=== PATIENT | male | born 1965 | race Caucasian/White ===

== ENCOUNTER 2022-03-24 10:24 | Inpatient (IN) | payer MEDICAID ==
[~2022-03-24] VITALS: Ht 297.2 cm; Wt 72.1 kg
[2022-03-24] MEDS ORDERED: ONDANSETRON HCL 4MG/2ML INJ IV STA (10:31)
[2022-03-24] MEDS ORDERED: SODIUM CHLORIDE 0.9% 1,000 ML IV ONE (10:45)
[2022-03-24] MEDS ORDERED: ONDANSETRON HCL 4MG/2ML INJ IV ONE (12:30)
[2022-03-24] MEDS ORDERED: ONDA4TAB50 PO (12:53)
[2022-03-24 13:19] LABS: BASOPHILS % 0.1 % (0.0-2.0); EOSINOPHILS % 0.1 % (0.0-5.0); HEMATOCRIT. 35.5 % (42.0-52.0); HEMOGLOBIN. 11.6 g/dL (14.0-18.0); LYMPHOCYTES % 15.5 % (20.0-50.0); MEAN CORPUSCULAR HEMOGLOBIN 32.9 pg (28.0-32.0); MEAN CORPUSCULAR VOLUME 100.9 fL (80.0-94.0); MONOCYTES % 8.4 % (2.0-8.0); NEUTROPHILS % 75.9 % (40.0-76.0); PLATELET 158 x1000/uL (130-400); RED BLOOD CELL COUNT 3.51 mill/uL (4.7-6.1); RED CELL DISTRIBUTION WIDTH 14.6 % (11.6-14.6)
[2022-03-24 13:21] LABS: CHLORIDE 110 mEq/L (98-107)
[2022-03-24 13:22] LABS: INR 1.1; PROTHROMBIN TIME 11.8 sec (9.6-11.0)
[2022-03-24] MEDS ORDERED: ENOXAPARIN 40MG/0.4ML SYR SUBCUT SCH (17:00)
[2022-03-24 17:40] VITALS: BP 108/62
[2022-03-24] MEDS: SODIUM CHLORIDE 0.45% 1,000 ML IV SCH (18:40)
[2022-03-24 20:00] VITALS: BP 116/85
[2022-03-24] MEDS ORDERED: LORAZEPAM 2MG/ML CPJ IV NR (20:30)
[2022-03-24] MEDS: ONDANSETRON HCL 4MG/2ML INJ IV PRN (20:42)
[2022-03-24] MEDS ORDERED: LOPERAMIDE HCL 2MG CAPSULE PO NR (22:00)
[2022-03-24] MEDS ORDERED: LOPERAMIDE HCL 2MG CAPSULE PO PRN (22:00)
[2022-03-25] VITALS: BP 113/80
[2022-03-25] MEDS: SODIUM CHLORIDE 0.45% 1,000 ML IV SCH ×3 (02:15→21:56)
[2022-03-25 08:00] VITALS: BP 97/68
[2022-03-25] MEDS: ONDANSETRON HCL 4MG/2ML INJ IV PRN ×2 (08:56→21:43)
[2022-03-25] MEDS: FAMOTIDINE 20MG/2ML VIAL IV SCH (08:56)
[2022-03-25 09:44] LABS: BASOPHILS % 0.2 % (0.0-2.0); EOSINOPHILS % 0.3 % (0.0-5.0); HEMATOCRIT. 30.1 % (42.0-52.0); HEMOGLOBIN. 10.1 g/dL (14.0-18.0); LYMPHOCYTES % 35.2 % (20.0-50.0); MEAN CORPUSCULAR HEMOGLOBIN 33.3 pg (28.0-32.0); MEAN CORPUSCULAR VOLUME 99.2 fL (80.0-94.0); MEAN PLATELET VOLUME 10.7 fl (7.4-10.4); MONOCYTES % 8.9 % (2.0-8.0); NEUTROPHILS % 55.4 % (40.0-76.0); PLATELET 148 x1000/uL (130-400); RED BLOOD CELL COUNT 3.03 mill/uL (4.7-6.1); RED CELL DISTRIBUTION WIDTH 14.3 % (11.6-14.6)
[2022-03-25 10:00] LABS: CHLORIDE 108 mEq/L (98-107)
[2022-03-25 11:22] LABS: TOTAL IRON BINDING CAPACITY 372 ug/dL (250-450)
[2022-03-25 12:00] VITALS: BP 111/80
[2022-03-25 13:01] LABS: CLARITY URINE CLEAR (CLEAR); COLOR URINE YELLOW (YELLOW); KETONES URINE NEGATIVE (NEGATIVE); LEUKOCYTE ESTERASE URINE NEGATIVE (NEGATIVE); NITRITE URINE NEGATIVE (NEGATIVE); OCCULT BLOOD URINE NEGATIVE (NEGATIVE); PH URINE 7.5 (4.5-8.0); PROTEIN URINE NEGATIVE (NEGATIVE); SPECIFIC GRAVITY URINE 1.017 (1.005-1.030)
[2022-03-25 13:27] LABS: *AMPHETAMINES SCREEN URINE NEGATIVE (NEGATIVE); *BARBITURATES SCREEN URINE NEGATIVE (NEGATIVE); *BENZODIAZEPINES SCREEN URINE NEGATIVE (NEGATIVE); *COCAINE SCREEN URINE NEGATIVE (NEGATIVE); CANNABINOID URINE SCREEN NEGATIVE (NEGATIVE); METHADONE URINE SCREEN NEGATIVE (NEGATIVE); OPIATES URINE SCREEN NEGATIVE (NEGATIVE); PHENCYCLIDINE URINE SCREEN NEGATIVE (NEGATIVE)
[2022-03-25 16:00] VITALS: BP 111/77
[2022-03-25 20:00] VITALS: BP 102/68
[2022-03-26] VITALS: BP 104/62
[2022-03-26 04:00] VITALS: BP 110/64
[2022-03-26] MEDS ORDERED: PANTOPRAZOLE 40MG DR TABLET PO SCH (07:20)
[2022-03-26 08:00] VITALS: BP 111/69
[2022-03-26] MEDS: SODIUM CHLORIDE 0.45% 1,000 ML IV SCH (10:10)
[2022-03-26] MEDS: FAMOTIDINE 20MG/2ML VIAL IV SCH (10:10)
[2022-03-26] MEDS ORDERED: PANT40SU MT (12:25)
[2022-03-26 14:35] VITALS: BP 119/70
== END 2022-03-26 15:09 | disposition home or self-care (01) | DRG 241 ==
LOC: ER 10:24 → 6EST 13:52 → ENRESERV 15:19
PROVIDERS: ADMIT Family Medicine; ATTEND Family Medicine
DX: K29.70 Gastritis, unspecified, without bleeding (principal); E86.0 Dehydration; H91.90 Unspecified hearing loss, unspecified ear; Z86.16 Personal history of COVID-19; Z72.89 Other problems related to lifestyle
CPT/HCPCS: 36415; 74018; 76700; 80053; 80305; 81003; 82950; 83540; 83550; 85025; 93005; 99285; C1893; J1650; J2060; J2405; J3490; J7030